=== PATIENT | female | born 1940 | race Caucasian/White ===

== ENCOUNTER 2020-12-25 10:18 | Emergency (ER) | payer MEDICARE, SELFPAY ==
--- NOTE | 2020-12-25 10:00 | RT.EKG_ITS ---
APPROVED REPORT Exam: Resting ECG Patient Location: E HR:66 bpm ECG Measurements Heart Rate 66 AXIS AK 189 P 47 QRSd 84 QRS 12 QT 423 T 31 QTc 443 Conclusion Sinus rhythm...normal P axis, V-rate 60- 99 I have reviewed and interpreted ECG and agree with software generated interpretation.
[2020-12-25 10:23] VITALS: BP 125/59; PULSE 68; RESP 20; TEMP 36.3; O2SAT 99
--- NOTE | 2020-12-25 10:28 | W.ED.GENAD ---
Discharge Plan Disposition Patient Disposition: HOME Condition: Stable Discharge Details Clinical Impression: Hypoglycemic event due to diabetes, Frequent falls Primary Care Provider: Bobby Rivero ED Provider: Christen Gonzalez Home Meds and New Rx's Prescriptions: No Action insulin glargine [Lantus U-100 Insulin] 100 UNITS/ML solution 10 - 45 units SQ DIRECTED RF: 0 aspirin [Aspir-81] 81 MG tablet,delayed release (DR/EC) 1 tab PO DAILY RF: 0 citalopram 20 MG tablet 2 tab PO DAILY RF: 0 pravastatin 20 MG tablet 1 tab PO HS RF: 0 radha ccr-lzi-T0-Nt-lbv-tui-bor [Citracal-D3 Plus Magnesium] 1 EACH tablet 1 tab PO DAILY RF: 0 lisinopril 20 MG tablet 20 mg PO DAILY RF: 0 metoprolol succinate 100 MG tablet extended release 24 hr 200 mg PO DAILY RF: 0 amlodipine 10 MG tablet 10 mg PO DAILY RF: 0 levothyroxine [Levoxyl] 50 MCG tablet 50 mcg PO DAILY RF: 0 hydrochlorothiazide 25 MG tablet 25 mg PO DAILY RF: 0 cholecalciferol (vitamin D3) [Vitamin D3] 2,000 UNIT tablet 2,000 unit PO DAILY RF: 0 Discharge Instructions Instructions: Hypoglycemia in a Person with Diabetes (ED), Fall Prevention for Older Adults (ED) Additional Instructions: Follow up with primary care provider in 2-3 days. Return to ED sooner if any worsening or concerns. Increase oral fluids. Sure to check your sugar at least 3 times a day as needed. Eat 3 meals a day. In the ED today you were given 25 units of Lantus at approximately 11:00 and 10 units regular insulin around 1:30 PM. Return to the ED for any reoccurring falls, worsening headache, worsening weakness, fever, vomiting or any concerns. Care management should be contacting you to help with a making a follow-up appointment with your primary care provider. Referrals: Bobby Rivero [Primary Care Provider] - Discharge Data Discharge Date/Time-TO BE ENTERED AT DEPARTURE: 12/25/20 14:25 Medical Decision Making 80-year-old female presents to the ED via EMS with chief complaint of hypoglycemia. Patient states that she fell out of bed this morning landing on her right hip. Denies any loss of consciousness or hitting her head. She states that her legs gave out she then went downstairs to check her sugar noticed it was 29, had a swig of maple syrup and called the ambulance. When EMS arrived they got a blood sugar of 212, she did want to come in and be checked out. She reports history of leg weakness. She denies any chest pain, shortness of breath no nausea vomiting diarrhea. She does endorse some constipation. She states that she took 35 units of Lantus at noon yesterday and 5 units of Humalog at that time before she ate. She states that her blood sugar at that time was 174. She did eat dinner last night eggs and toast and had to peanut butter cookies approximately 2300 last night. She did not take any insulin this morning. 1041: Initial work-up includes CBC, CMP, EKG, glucose checks every hour. Initial BGL is 257. We will go ahead and feed patient. Call made for food diabetic tray, will give 25 units of Lantus SC now (patient regulary takes 45 units in am). Will recheck BGL in 1 hour. 1155: Spoke with patient's daughter regarding plan of care inpatient status. Patient's daughter verbalized understanding. Will call back approximately an hour and a half. 1245: Repeat BGL is 312, will 10 units subcu regular insulin and 5 mg Tylenol. Discussed doing head CT and or x-rays patient declined at this time. She is neurologically intact, alert and oriented x3. Discussed her management and offered home health and help in the home for frequent falls. Patient states that she does have a walker at home and a cane. 1328: Did speak with patient's daughter Tyra regarding plan for discharge and home care she does verbalize understanding at this time. Patient placed on a care management follow-up list to have a follow-up appointment within 2 to 3 days. Discuss strict return instructions, verbalized understanding. HPI General Mode of arrival: EMS. Date/Time Provider Initiated Documentation: 12/25/20 10:33. Limitations to Documentation: no limitations. Information obtained by: patient and EMS. HPI Narrative: 80-year-old female presents to the ED via EMS with chief complaint of hypoglycemia. Patient states that she fell out of bed this morning landing on her right hip. Denies any loss of consciousness or hitting her head. She states that her legs gave out she then went downstairs to check her sugar noticed it was 29, had a swig of maple syrup and called the ambulance. When EMS arrived they got a blood sugar of 212, she did want to come in and be checked out. She reports history of leg weakness. She denies any chest pain, shortness of breath no nausea vomiting diarrhea. She does endorse some constipation. She states that she took 35 units of Lantus at noon yesterday and 5 units of Humalog at that time before she ate. She states that her blood sugar at that time was 174. She did eat dinner last night eggs and toast and had to peanut butter cookies approximately 2300 last night. She did not take any insulin this morning. Related Data Home Medications Medication Instructions Recorded Confirmed insulin glargine [Lantus Vial] 10 - 45 units SQ DIRECTED 03/31/13 02/08/17 aspirin [Aspir 81] 1 tab PO DAILY 10/30/13 02/08/17 radha fbm-urm-Y2-Jo-rna-ynq-bor 1 tab PO DAILY 10/30/13 02/08/17 [Citracal-Vit D + Magnesium Tab] citalopram 2 tab PO DAILY 10/30/13 02/08/17 pravastatin 1 tab PO HS 10/30/13 02/08/17 amlodipine 10 mg PO DAILY 02/08/17 02/08/17 cholecalciferol (vitamin D3) 2,000 unit PO DAILY 02/08/17 02/08/17 [Vitamin D3] hydrochlorothiazide 25 mg PO DAILY 02/08/17 02/08/17 levothyroxine [Levoxyl] 50 mcg PO DAILY 02/08/17 02/08/17 lisinopril 20 mg PO DAILY 02/08/17 02/08/17 metoprolol succinate 200 mg PO DAILY 02/08/17 02/08/17 Allergies Allergy/AdvReac Type Severity Reaction Status Date / Time No Known Allergies Allergy Unverified 02/08/17 09:29 Review of Systems Narrative: Constitutional: Negative for weight loss, alert and oriented, well groomed, obese body habitus, appears comfortable. HEENT: Denies blurry vision, nasal discharge, sore throat, trouble swallowing. Reports headaches. Chest: Denies chest pain, palpitations, irregular rhythm, hypertension. Respiratory: Denies Shortness of breath, cough, hemoptysis. GI: Denies abdominal pain, nausea, vomiting, diarrhea, positive constipation. : Denies dysuria, hematuria, flank pain, rectal bleeding. Neuro: Denies dizziness, blurry vision, syncope, headache or facial numbness. Reports generalized weakness. Hematologic: Denies easy bruising, intolerance to heat or cold, hair loss. [facility] Social History Smoking/Tobacco Use Status: Never Smoking risk assessment performed?: Yes Alcohol Intake: former Drug use: Never Substance use type: does not use Do you feel safe at home: Yes Do you feel safe in your relationship?: Yes Exam Narrative Exam Narrative: Constitutional: Alert and oriented x3. Appears stated age. Normal body habitus. Head: Normocephalic, no signs of trauma. Eyes: Pupils PERRLA, Red reflex noted, EOM's intact. Eyelids symmetrical without lesions, discharge, or swelling. ENT: Bilateral TM's WNL, External ear normal to inspection, no mastoid TTP, swelling, or erythema, Nasal turbinates WNL, no nasal discharge. Normal dentition, Posterior pharynx WNL, no exudate. Chest: RRR, Normal S1, S2, distal pulses intact. Resp: Lungs clear to auscultation bilaterally, no wheezes, rales, or rhonchi. Abdomen: Soft, nondistended nontender with palpation. Musculoskeletal: Normal gait, 5/5 strength to all four extremities. Skin: No suspicious rashes or lesions. Capillary refill less than 2 sec. Neurologic: Cranial nerves II-XII intact. Alert and oriented x 3. DTR's intact. Hematologic/Lymphatic: No ecchymosis, no lymphadenopathy.
[2020-12-25] MEDS: Normal Saline 1,000 ML 150 ML IV (11:32)
[2020-12-25] MEDS: Insulin Glargine 300 UNITS/3 ML PEN 25 UNITS SC (11:39)
[2020-12-25 11:47] LABS: Abs Immature Grans 0.12 10^3/uL (0.0-0.06); Absolute Eosinophil Count 0.03 10^3/uL (0.0-0.7); Absolute Lymphocyte Count 1.39 10^3/uL (1.2-3.4); Absolute Neutrophil Count 14.24 10^3/uL (1.2-6.7); Basophils % 0.2; Eosinophils % 0.2; HCT 39.9 % (36.0-46.0); Immature Grans % 0.7; MCH 28.3 pg (27.0-33.0); MCHC 32.6 % (32.0-36.0); MCV 86.9 fL (80-95); MPV 11.8 fL (8.0-11.0); Monocytes % 9.2; Neutrophils % 81.7; Nucleated RBC 0 %; RBC 4.59 10^6/uL (3.93-5.22); RDW 12.7 % (11.7-14.6); RDW-SD 40.2 fL; WBC 17.43 10^3/uL (4.4-10.8)
[2020-12-25 11:50] LABS: Absolute Basophil Count 0.03 10^3/uL (0.0-0.2)
[2020-12-25 12:00] LABS: ALT 26 U/L (14-59); AST 20 U/L (15-37); Albumin 3.5 g/dL (3.4-5.0); Alkaline Phosphatase 104 U/L (46-116); Anion Gap 9.4 mmol/L (3-11); BUN 39 mg/dL (7-18); Bilirubin, Total 0.4 mg/dL (0.2-1.0); CO2 24.6 mmol/L (21.0-32.0); CREATININE 2.3 mg/dL (0.55-1.02); Calcium 9.6 mg/dL (8.5-10.1); Chloride 100 mmol/L (98-107); Glucose 304 mg/dL (74-106); Magnesium 1.7 mg/dL (1.8-2.4); Platelet Count 213 10^3/uL (130-400); Sodium 134 mmol/L (136-145); Total Protein 7.4 g/dL (6.4-8.2)
[2020-12-25 12:01] LABS: Diff Comment Diff Reviewed; RBC Morphology Normal
[2020-12-25 12:15] LABS: Bilirubin Negative (Negative); Blood Negative (Negative); Clarity Sl Cloudy (Clear); Glucose 100 mg/dL (Negative); Ketones Negative (Negative); Leukocyte Esterase Negative (Negative); Nitrite Negative (Negative); Specific Gravity 1.025 (1.005-1.025); Urobilinogen 0.2 EU/dL (Up TO 0.2); pH 5.5 (5-8)
[2020-12-25 12:22] LABS: Bacteria Few HPF (Negative); C & S Indicated? Yes; Casts Negative LPF (Negative); Crystals Negative HPF (Negative); Epithelial Cells Few HPF (Negative); Mucus Moderate (Negative); RBC 0-2 HPF (0-2); WBC 0-2 HPF (0-5)
[2020-12-25 12:34] VITALS: RESP 19
[2020-12-25] MEDS: Insulin REGULAR-Human 100 UNITS/ML UNIT 10 UNITS SC (13:25)
[2020-12-25] MEDS: Acetaminophen 500 MG TAB PO (13:28)
[2020-12-25 13:43] VITALS: RESP 21; TEMP 36.3
[2020-12-25 14:06] VITALS: BP 161/79; PULSE 88
== END 2020-12-25 14:25 | disposition home or self-care (01) ==
PROVIDERS: Emergency Provider Registered Nurse Emergency; PCP Internal Medicine Sleep Medicine
DX: E11.649 Type 2 diabetes mellitus with hypoglycemia without coma (principal); Z79.4 Long term (current) use of insulin; R53.1 Weakness; W06.XXXA Fall from bed, initial encounter; R29.6 Repeated falls
CPT/HCPCS: 36415; 36416; 80053; 82962; 93005; 96360; 96361; 96372; 99284; 81003; 81015; 83735; 85025; 87086; 93010

== ENCOUNTER 2024-08-12 12:51 | Emergency (ER) | payer MEDICARE, SELFPAY ==
[2024-08-12] VITALS (8 sets, daily range): BP systolic 145–158; BP diastolic 61–66; PULSE 66–74; RESP 11–42; O2SAT 95–100
--- NOTE | 2024-08-12 12:45 | RT.EKG_ITS ---
APPROVED REPORT Exam: Resting ECG Reason for Exam: altered mental status Patient Location: E HR:69 bpm ECG Measurements Heart Rate 69 AXIS IA 183 P 65 QRSd 82 QRS 25 QT 391 T 29 QTc 418 Conclusion Sinus rhythm...normal P axis, V-rate 60- 99
--- NOTE | 2024-08-12 12:45 | DI.CT_ITS ---
Exam(s) CT HEAD - STROKE PROTOCOL EXAM: CT HEAD - STROKE PROTOCOL CLINICAL HISTORY: AMS. TECHNIQUE: Imaging Protocol: Axial computed tomography images with coronal and sagittal reformatted images were created and reviewed COMPARISON: CT HEAD WITHOUT STROKE PROTOCOL from 02/08/2017 FINDINGS: There are no skull fractures. There is no fluid in the visualized paranasal sinuses. There is larger of abnormal hypodensity in the right occipital lobe which was not evident in 2017 and consistent with nonhemorrhagic infarct. May not be acute given the significant part of this exhibit s normal CSF density. No other areas of infarct evident although there is a small 5 millimeter lacun ar infarct noted in the right cerebellar hemisphere which was not present in 2017 IMPRESSION: Nonhemorrhagic right occipital lobe infarct. Possibly not acute but not previously present in 2017. No intracranial hemorrhage. Small nonhemorrhagic lacunar infarct in the right cerebellar hemisphere, also not previously present in 2017. Called by myself to ER 08/12/2024 at 1:13 p.m. Report given to ER physician. RADIATION DOSE DELIVERED: 891.73mGy.cm Total DLP DATA REPOSITORY: All CT scans at this facility are submitted to the National Radiology Data Registry (NRDR) Dose Index Registry (DIR) with the [employer] (A[employer]). RADIATION OPTIMIZATION: All CT scans at this facility use at least one of these dose optimization te chniques: automated exposure control; mA and/or kV adjustment per patient size (includes targeted exa ms where dose is matched to clinical indication); or iterative reconstruction.
--- NOTE | 2024-08-12 13:03 | W.ED.GENAD ---
Discharge Plan Disposition Condition: Stable Discharge Details Chief Complaint: AMS/LOC Clinical Impression: Altered mental status Primary Care Provider: Lyla Segundo ED Provider: Fili Christie Home Meds and New Rx's Prescriptions: No Action insulin glargine [Lantus U-100 Insulin] 100 UNITS/ML solution 10 - 45 units SQ DIRECTED Patient Comments: 45 units QAM / 10 units QHS aspirin [Aspir-81] 81 MG tablet,delayed release (DR/EC) 1 tab PO DAILY citalopram 20 MG tablet 2 tab PO DAILY pravastatin 20 MG tablet 1 tab PO HS Citracal-D3 Plus Magnesium 1 EACH tablet 1 tab PO DAILY lisinopril 20 MG tablet 20 mg PO DAILY metoprolol succinate 100 MG tablet extended release 24 hr 200 mg PO DAILY amlodipine 10 MG tablet 10 mg PO DAILY levothyroxine [Levoxyl] 50 MCG tablet 50 mcg PO DAILY hydrochlorothiazide 25 MG tablet 25 mg PO DAILY cholecalciferol (vitamin D3) [Vitamin D3] 2,000 UNIT tablet 2,000 unit PO DAILY HPI General Mode of arrival: EMS. Date/Time Provider Initiated Documentation: 08/12/24 12:52. Limitations to Documentation: no limitations. Information obtained by: patient. History of Present Illness 83 year old F presents to the emergency department with the chief complaint of altered mental status, described as moderate, Patient started experiencing this hour(s) (1.5) and it has been constant. No relieving factors improve symptom(s), No exacerbating factors reported . Patient did receive the following treatments prior to arrival, none Related Data Home Medications ?Medication ?Instructions ?Recorded ?Confirmed insulin glargine 100 unit/mL 10 - 45 units SQ DIRECTED 03/31/13 08/12/24 subcutaneous solution (Lantus U-100 Insulin) aspirin 81 mg tablet,delayed 1 tab PO DAILY 10/30/13 08/12/24 release (Aspir-) calcium 1 tab PO DAILY 10/30/13 08/12/24 jiu-cyv-F9-Lj-jmoslh-Qo-boron 250 mg-40 mg-125 unit tablet (Citracal-D3 Plus Magnesium) citalopram 20 mg tablet 2 tab PO DAILY 10/30/13 08/12/24 pravastatin 20 mg tablet 1 tab PO HS 10/30/13 08/12/24 amlodipine 10 mg tablet 10 mg PO DAILY 02/08/17 08/12/24 cholecalciferol (vitamin D3) 50 2,000 unit PO DAILY 02/08/17 08/12/24 mcg (2,000 unit) tablet (Vitamin D3) hydrochlorothiazide 25 mg tablet 25 mg PO DAILY 02/08/17 08/12/24 levothyroxine 50 mcg tablet 50 mcg PO DAILY 02/08/17 08/12/24 (Levoxyl) lisinopril 20 mg tablet 20 mg PO DAILY 02/08/17 08/12/24 metoprolol succinate 100 mg 200 mg PO DAILY 02/08/17 08/12/24 tablet,extended release 24 hr Allergies Allergy/AdvReac Type Severity Reaction Status Date / Time No Known Allergies Allergy Unverified 02/08/17 09:29 General Stated Complaint: AMS/LOC RUBIN: 2 Review of Systems Unobtainable due to mental status Exam [facility] Head: normal to inspection Ears: external ears normal General nose exam: external nose normal Mouth: moist mucous membranes Eyes General: appearance normal, both eyes and all related structures Neck Neck: normal visual inspection Resp Effort & Inspection: normal respiratory effort Cardio Rate: regular rate Skin General skin exam: no rashes or lesions noted Extrem General: normal to inspection Medical Decision Making 83-year-old female with a reported history of dementia but normally is oriented per EMS report from EMS comes in after she slid out of her recliner per family around 1130 and started moaning and not responding. With EMS she was not answering questions, she would moan to painful stimuli. On arrival she is doing more of the same, she has no signs of trauma to the head, she does moan and pulls away her lower extremities with painful stimuli.She is crying persistently during the exam. Her pupils are equal and reactive to light. She has a soft nontender abdomen. Unclear if this is an acute neurological issue or behavioral issue, it does not seem like she has unilateral deficits to suggest a CVA but will proceed with CTA and CT, and also check CBC, CMP and give 0.5 mg of Ativan and reassess. Patient daughters are at bedside to see her almost daily, they said that she started treatment for an UTI at [facility] a week ago which she still taking. He states he normally is talkative but nobody has talked to her since last night. They state that this morning she walked into her recliner and when her went to talk to her she was nonverbal so it seems like her last known well was last night and not 2 hours ago so she is not a tPA candidate. Labs are still pending, we will see if we have ability to get an MRI. Patient shortly after having Ativan unremarkable improvement in her mental status and is awake and talking, she is alert to her name but does not know where she is at the time. Apparently per the daughters last few weeks she is definitely any deterioration in terms of her mental state. Labs unremarkable, pending MRI. MRI read as no acute findings. Has evidence of old infarcts strokes. Patient still alert, I suspect this was related to dementia and possibly behavioral factor given her rapid improvement with Ativan. Will have physical therapy and care management eval. Patient's UA does show signs of a continued UTI, they were not able to culture it so nursing will collect and will sample to send for culture. Patient be signed out to [facility] pending PT evaluation. If she is not able to go home we will consider IV antibiotics, if able to go home will consider oral antibiotics. Differential Diagnosis Differential Diagnosis: Dementia, behavioral issue, CVA, electrolyte abnormality Medical Records Medical records reviewed: Yes I reviewed the patient's medical records. Imaging Data Radiologic Study: Attestation: I personally reviewed and interpreted this imaging study as follows: Imaging: MRI Radiologist's impression: CEREBRAL PARENCHYMA: There is no evidence of acute intracranial hemorrhage, mass effect, or shift of midline structures. There are no extra-axial fluid collections. Ventricles are not enlarged or shifted. Small nonhemorrhagic nonacute lacunar infarct noted in the right cerebellar hemisphere. There is moderate amount of bilateral periventricular signal abnormality consistent with chronic small vessel disease. Also evidence of prior nonacute infarct in the right occipital lobe without evidence of restricted diffusion at this level nor elsewhere in the brain. SWI: There are 2 adjacent small foci of signal abnormality in the right occipital lobe consistent with microhemorrhages in the region of the nonacute right occipital infarct. PITUITARY GLAND: No mass nor parasellar abnormality. No obvious abnormality in the cavernous sinuses. FLOW VOIDS: The expected flow void are noted. No evidence of obvious aneurysm nor obvious vascular malformation. PARANASAL SINUSES: The visualized paranasal sinuses appear unremarkable. There is effusion in the mastoid air cells, more so on the right side. ORBITS: No obvious findings. IMPRESSION: The right occipital infarct evident on the CT scan of earlier today has appearance of not being acute (no restricted diffusion) on today's MRI scan. However, there 2 small adjacent foci of signal abnormality on susceptibility weighted imaging in this region consistent with 2 adjacent microhemorrhages in the area of the right occipital lobe infarct. Nonacute nonhemorrhagic small 4 millimeter lacunar infarct noted in the right cerebellar hemisphere. Bilateral periventricular signal abnormality consistent with chronic small vessel disease. Mastoid air cell effusions, right more than left. The paranasal sinuses are clear ECG Data Attestation: I personally reviewed and interpreted this ECG (s) as follows: Prior ECG tracings: not available for review Interpretation: sinus rate of 69, pr 183, no stemi Quality:SDOH Health Related Social Needs: No Data to Display PFSH All Active Problems (Updated 08/12/24 @ 16:12 by Fili Christie MD) Altered mental status (Acute) Sensorineural hearing loss (SNHL) of both ears (Acute) Social History Smoking/Tobacco Use Status: Never Smoking risk assessment performed?: Yes Alcohol Intake: former Drug use: Never Substance use type: does not use Do you feel safe at home: Yes Do you feel safe in your relationship?: Yes
[2024-08-12 13:21] LABS: Abs Immature Grans 0.03 10^3/uL (0.0-0.06); Absolute Basophil Count 0.06 10^3/uL (0.0-0.2); Absolute Eosinophil Count 0.06 10^3/uL (0.0-0.7); Absolute Lymphocyte Count 2.14 10^3/uL (1.2-3.4); Absolute Monocyte Count 1.17 10^3/uL (0.1-0.8); Absolute Neutrophil Count 6.08 10^3/uL (1.2-6.7); Basophils % 0.6 %; Eosinophils % 0.6 %; HCT 38.4 % (36.0-46.0); HGB 12.7 g/dL (11.2-15.7); Immature Grans % 0.3 %; Lymphocytes % 22.4 %; MCH 29.8 pg (27.0-33.0); MCHC 33.1 % (32.0-36.0); MCV 90 fL (80-95); MPV 10.9 fL (8.0-11.0); Monocytes % 12.3 %; Neutrophils % 63.8 %; Platelet Count 179 10^3/uL (130-400); RBC 4.26 10^6/uL (3.93-5.22); RDW 12.6 % (11.7-14.6); RDW-SD 41.5 fL; WBC 9.54 10^3/uL (4.4-10.8)
[2024-08-12] MEDS: LORazepam 2 MG/ML VIAL 0.5 MG IVP (13:28)
[2024-08-12 13:36] LABS: INR 1.1 (0.9-1.1); PTT Activated 24.6 sec (23.6-32.8); Prothrombin Time 10.6 sec (9.1-11.1)
[2024-08-12 14:02] LABS: ALT 30 U/L (14-59); AST 28 U/L (15-37); Albumin 3.9 g/dL (3.4-5.0); Alkaline Phosphatase 91 U/L (46-116); Anion Gap 9.4 mmol/L (3-11); BUN 39 mg/dL (7-18); Bilirubin, Direct 0.2 mg/dL (0.0-0.2); CO2 25.6 mmol/L (21.0-32.0); CREATININE 2.4 mg/dL (0.55-1.02); Chloride 104 mmol/L (98-107); Estimated GFR 19.31 (mL/min/1.73m2); Glucose 159 mg/dL (74-106); Magnesium 2.2 mg/dL (1.8-2.4); Potassium 4.5 mmol/L (3.5-5.1); Sodium 139 mmol/L (136-145); TSH (W/Ref FT4) 2.27 uIU/mL (0.36-3.74); Total Protein 7.1 g/dL (6.4-8.2); Troponin I 13 ng/L (<or=51)
--- NOTE | 2024-08-12 14:25 | DI.MRI_ITS ---
Exam(s) MR BRAIN WO EXAM: MR BRAIN WO CLINICAL HISTORY: ?cva TECHNIQUE: Multiplanar multisequence MRI of the brain was performed. COMPARISON: CT CT HEAD - STROKE PROTOCOL from 08/12/2024 FINDINGS: CEREBRAL PARENCHYMA: There is no evidence of acute intracranial hemorrhage, mass effect, or shift of midline structures. There are no extra-axial fluid collections. Ventricles are not enlarged or shifted. Small nonhemorrhagic nonacute lacunar infarct noted in the right cerebellar hemisphere. There is moderate amount of bilateral periventricular signal abnormality consistent with chronic smal l vessel disease. Also evidence of prior nonacute infarct in the right occipital lobe without eviden ce of restricted diffusion at this level nor elsewhere in the brain. SWI: There are 2 adjacent small foci of signal abnormality in the right occipital lobe consistent wit h microhemorrhages in the region of the nonacute right occipital infarct. PITUITARY GLAND: No mass nor parasellar abnormality. No obvious abnormality in the cavernous sinuses. FLOW VOIDS: The expected flow void are noted. No evidence of obvious aneurysm nor obvious vascular ma lformation. PARANASAL SINUSES: The visualized paranasal sinuses appear unremarkable. There is effusion in the ma stoid air cells, more so on the right side. ORBITS: No obvious findings. IMPRESSION: The right occipital infarct evident on the CT scan of earlier today has appearance of not being acute (no restricted diffusion) on today's MRI scan. However, there 2 small adjacent foci of signal abnor mality on susceptibility weighted imaging in this region consistent with 2 adjacent microhemorrhages in the area of the right occipital lobe infarct. Nonacute nonhemorrhagic small 4 millimeter lacunar infarct noted in the right cerebellar hemisphere. Bilateral periventricular signal abnormality consistent with chronic small vessel disease. Mastoid air cell effusions, right more than left. The paranasal sinuses are clear Called to ER physician 08/12/2024 at 3 10 p.m. DATA REPOSITORY:
--- NOTE | 2024-08-12 15:15 | DI.MRI_ITS ---
Exam(s) MR ANGIO NECK WO EXAM: MR ANGIO NECK WO CLINICAL HISTORY: ?cva, ams. TECHNIQUE: 2D and 3D [id number] MRA of the Neck was performed. COMPARISON: No exams were available for comparison FINDINGS: Exam is limited by motion however projected on the 3D [id number] sequence.. Common Carotid: Right: No dissection, occlusion or significant stenosis. Left: No dissection, occlusion or significant stenosis. External Carotid: Right: No evidence of occlusion or significant stenosis. Left: No evidence of occlusion or significant stenosis. Internal Carotid: Right: No dissection, occlusion or significant stenosis. Left: No dissection, occlusion or significant stenosis. Vertebral Artery: Right: No dissection, occlusion or significant stenosis. Left: No dissection, occlusion or significant stenosis. The visualized paraspinal soft tissues are unremarkable. IMPRESSION: No evidence of dissection, occlusion or significant stenosis. DATA REPOSITORY:
--- NOTE | 2024-08-12 15:15 | DI.MRI_ITS ---
Exam(s) MR ANGIO BRAIN WO CLINICAL HISTORY: ?cva, ams. TECHNIQUE: 3D [id number] study was performed without contrast. COMPARISON: Brain MRI the same day. FINDINGS: Exam is limited by motion. Carotid Arteries: Petrous: Normal. Cavernous: Normal. Cerebral: Normal. Middle Cerebral Arteries: Right: No aneurysm or significant stenosis. Left: No aneurysm or significant stenosis. Anterior Cerebral Arteries: Right: Dominant. No aneurysm or significant stenosis. Left: No aneurysm or significant stenosis. Posterior cerebral arteries: Diminutive bilaterally Vertebral Arteries: Right: No aneurysm or significant stenosis. No dissection. Left: No aneurysm or significant stenosis. No dissection.. Basilar Artery: No aneurysm or significant stenosis. Small Vessels: No evidence of beading. IMPRESSION: Diminutive bilateral posterior cerebral arteries. Exam is otherwise unremarkable. DATA REPOSITORY:
[2024-08-12] MEDS: LORazepam 2 MG/ML VIAL (15:30)
[2024-08-12 16:02] LABS: Bilirubin Negative (Negative); Blood Trace-intact (Negative); Clarity Sl Cloudy (Clear); Glucose Negative (Negative); Ketones Negative (Negative); Leukocyte Esterase Large (Negative); Nitrite Negative (Negative); Specific Gravity 1.015 (1.005-1.025); Urobilinogen 0.2 mg/dL (Up to 0.2); pH 6.5 (5-8)
[2024-08-12 16:03] LABS: Troponin I 11 ng/L (<or=51)
[2024-08-12 16:09] LABS: Bacteria Few HPF (Negative); C & S Indicated? No/Sq. Contamination; Crystals Negative HPF (Negative); Epithelial Cells Many HPF (Negative); Mucus Trace (Negative); Other Cells Few Transitional (Negative); WBC >50 HPF (0-5)
--- NOTE | 2024-08-12 16:25 | IN_ITS ---
PT Notes Visit Reasons: [facility] Emergency Department Initial Evaluation Date: 08/12/2024 Referring Doctor: Fili Christie MD PT Orders: PT CONSULT: Fall Safety Assessment Precautions: Fall. Standard. Activity as tolerated. Patient Profile/Admitting Diagnosis: Patient is an 83-year-old lady who presented to the ED today via EMS due to altered mental status. She reportedly slid out of her recliner and has had decreased responsiveness. MRI today showed no acute abnormality. 08/12/2024 MRI IMPRESSION: The right occipital infarct evident on the CT scan of earlier today has appearance of not being acute (no restricted diffusion) on today's MRI scan. However, there 2 small adjacent foci of signal abnormality on susceptibility weighted imaging in this region consistent with 2 adjacent microhemorrhages in the area of the right occipital lobe infarct. Nonacute nonhemorrhagic small 4 millimeter lacunar infarct noted in the right cerebellar hemisphere. Bilateral periventricular signal abnormality consistent with chronic small vessel disease. Mastoid air cell effusions, right more than left. The paranasal sinuses are clear PMHX: All Active Problems (Updated 08/12/24 @ 16:12 by Fili Christie MD) Altered mental status (Acute) Sensorineural hearing loss (SNHL) of both ears (Acute) Social History/Home Situation: Lives with who himself has a balance and visual issues and therefore is unable to safely provide physical assistance to . Bree and Lilli are family memebers who are in and out of their house and may be able to provided assistnce as needed. Equipment Owned/DME: [facility], [facility] Subjective: This place is so cold. I can move, let me show you Objective: General Observation: Lying on stretcher. Son's girlfriend and granddaughter present in room throughout evaluation. Mental Status: Alert and oriented as to person. Knows where she lives. Able to pay attention, focus, and respond appropriately. Pain: Tenderness to bilateral hamstrings when muscle testing was done. Vital Signs: Closely monitored by nursing staff ROM: Right Upper Extremity: Shoulder Flexion WFL. Shoulder abduction WFL. Elbow flexion WFL. Wrist flexion WFL. Functional opening and closing of hand WFL. Left Upper Extremity: Shoulder Flexion WFL. Shoulder abduction WFL. Elbow flexion WFL. Wrist flexion WFL. Functional opening and closing of hand WFL. Right Lower Extremity: Hip flexion WFL. Hip abduction WFL. Knee flexion WFL. Ankle dorsiflexion to neutral only. Ankle plantarflexion WFL. Left Lower Extremity: Hip flexion WFL. Hip abduction WFL. Knee flexion WFL. Ankle dorsiflexion WFL. Ankle plantarflexion WFL. Strength: Right Upper Extremity: Shoulder flexors 4-/5. Shoulder abductors 4-/5. Elbow flexors 4-/5. Elbow extensors 4-/5. Independent Living Specialist strong. Left Upper Extremity: Shoulder flexors 4-/5. Shoulder abductors 4-/5. Elbow flexors 4-/5. Elbow extensors 4-/5. Independent Living Specialist strong. Right Lower Extremity: Hip flexors 3+/5. Hip abductors 3+/5. Knee flexors 4-/5. Knee extensors 4-/5. Ankle dorsiflexors 3-/5. Ankle plantarflexors 4-/5. Left Lower Extremity: Hip flexors 3+/5. Hip abductors 3+/5. Knee flexors 4-/5. Knee extensors 4-/5. Ankle dorsiflexors 3-/5. Ankle plantarflexors 4-/5. Bed Mobility/Transfers: Minimal cueing provided for use of B hands as needed for support, movement sequence, AD management, and posture to reduce fall risk and minimize pain report Supine to sit contact guard assist Sit to supine stand by assist Sit to stand contact guard assist Stand to sit standby assist with [] with [] cues for safe/correct technique Gait: Facilitated safe and correct performance of level surface ambulation covering a distance of about 80 feet using front-wheeled walker requiring standby assist contact-guard assist during directional changes as patient tends lose awareness of posterior balance. No LOB. No SOB. neeed cueing to slw down and keep both hands onto walker. Balance: Static Sitting: Normal Dynamic Sitting: Normal Static Standing: Fair Dynamic Standing: Fair Special Tests: Mobility Limitations Standardized Measure [facility] AM-PAC 6 clicks Basic Mobility Inpatient Short Form: Raw Score: 22 CMS Score: 21% deficit Informed Consent/Education: Patient was instructed in purpose of PT consult. Assessment: Patient presents with clinical signs and symptoms consistent with current/admitting diagnoses that have resulted to mobility limitations, gait instability, generalized weakness, and overall ADL decline as demonstrated by the following impairment level findings: 1. Decreased strength to B UE/LE major muscle groups 2. Impaired sitting/standing balance 3. Impaired activity tolerance Impairments are contributing to the following functional limitations: 1. Difficulty with ambulation without assistive device and physical assistance 2. Increased completion time for mobility ADL performance 3. Increased risk for falls 4. Difficulty with managing steps alone safely Patient is assessed as a [id number] moderate complexity based on the following: History: 83-year-old female with past medical history as indicated above Examination: Demonstrable impairment in strength, balance, and mobility level with underlying impairments and functional limitations as exhibited above as well as deficit score of 21% utilizing the [facility] Mobility Inpatient Short Form Presentation: Evolving Decision Makin moderate complexity Goals: N/A. PT evaluation only. Plan of Care/Treatment Plan: N/A. PT evaluation only. DISCHARGE RECOMMENDATIONS: [] Home with no services [] [X] Home with services. Patient will benefit from home health PT services in order to progress mobility level using least restrictive assistive ambulatory device, assess home safety, identify additional equipment needs, and establish a functional maintenance program that will increase ability of patient to remain at home. [] Home with outpatient PT [] [] SNF for continued rehabilitation [] [] Assisted Care [] [] SNF versus LTC based on ability to participate and progress [] TREATMENT CODE/TIME: 63299 x 27 minutes for 1 unit (16: 25?16: 52). Thank you for the opportunity to participate in the care of this patient. Yuni Jaquez PT, DPT, CLT [facility] [place], [place]
--- NOTE | 2024-08-12 16:31 | W.EDPROG ---
Date of service: 08/12/24 Time of Service: 16:31 Medical Decision Making Care assumed from provider (Fili MENDOZA) Please see their initial HPI, PE, and documentation. Discussed patient details and case and pending workup and disposition. Patient is hemodynamically stable, and at baseline. Care management at bedside for evaluation. Patient does have leukocytes with squamous contamination, instructed nurses to attempt an In-N-Out catheter urine specimen. Awaiting PT eval for ambulatory trial and assessment of safety for discharge. Spoke with physical therapist who reports that patient is able to walk with a walker and with assistance at this time. She does have a walker at home and she is not independent by any means at this time, will order home health and care management will follow up with them tomorrow. Spoke with family she does a self administer her medications, she does have help with her family 3 times a day. She does have a walker at home. I will order home health for physical therapy and occupational therapist to evaluate for performing self-care and ADLs and upper extremity strength range of motion and speech therapy. Will also order medical authorization specialist to assist with community resources and long care planning. Patient does have a history of dementia and is required care throughout the day at home by her family members. They do express desire for additional help at home. Patient remained hemodynamically stable throughout the remainder of her stay. She was at baseline mentation. Will give cephalexin for urinary tract infection and discussed strict return instructions. This text was generated using [employer] dictation system, please disregard any oddities of phrase or misspellings. Lab Data Lab results reviewed: Yes I reviewed the patient's lab results. Labs: 08/12/24 16:55 Urine - Cath Straight Urine Culture - Pending Laboratory Tests Range/Units 08/12/24 08/12/24 08/12/24 13:15 15:25 15:55 WBC (4.4-10.8) 10^3/uL 9.54 RBC (3.93-5.22) 10^6/uL 4.26 Hgb (11.2-15.7) g/dL 12.7 Hct (36.0-46.0) % 38.4 MCV (80-95) fL 90 MCH (27.0-33.0) pg 29.8 MCHC (32.0-36.0) % 33.1 RDW (11.7-14.6) % 12.6 Plt Count (130-400) 10^3/uL 179 MPV (8.0-11.0) fL 10.9 Immature Gran % % 0.3 Neutrophils % % 63.8 Lymphocytes % % 22.4 Monocytes % % 12.3 Eosinophils % % 0.6 Basophils % % 0.6 Nucleated RBC % (0.0-0.3) % 0.0 Absolute Neutrophils (1.2-6.7) 10^3/uL 6.08 Absolute Lymphocytes (1.2-3.4) 10^3/uL 2.14 Absolute Monocytes (0.1-0.8) 10^3/uL 1.17 H Absolute Eosinophils (0.0-0.7) 10^3/uL 0.06 Absolute Basophils (0.0-0.2) 10^3/uL 0.06 PT (9.1-11.1) sec 10.6 INR (0.9-1.1) 1.1 APTT (23.6-32.8) sec 24.6 Sodium (136-145) mmol/L 139 Potassium (3.5-5.1) mmol/L 4.5 Chloride (98-107) mmol/L 104 Carbon Dioxide (21.0-32.0) mmol/L 25.6 Anion Gap (3-11) mmol/L 9.4 BUN (7-18) mg/dL 39 H Creatinine (0.55-1.02) mg/dL 2.4 H Est GFR (CKD-EPI 2020) (mL/min/1.73m2) 19.31 Glucose (74-106) mg/dL 159 H Calcium (8.5-10.1) mg/dL 11.0 H Magnesium (1.8-2.4) mg/dL 2.2 Total Bilirubin (0.2-1.0) mg/dL 0.90 Conjugated Bilirubin (0.0-0.2) mg/dL 0.2 AST (15-37) U/L 28 ALT (14-59) U/L 30 Alkaline Phosphatase (46-116) U/L 91 Troponin I (<or=51) ng/L 13 11 Total Protein (6.4-8.2) g/dL 7.1 Albumin (3.4-5.0) g/dL 3.9 TSH (0.36-3.74) uIU/mL 2.27 Urine Color (Yellow) Yellow Urine Clarity (Clear) Sl Cloudy Urine pH (5-8) 6.5 Ur Specific [place] (1.005-1.025) 1.015 Urine Protein (Neg-Trace) mg/dL Trace Urine Ketones (Negative) mg/dL Negative Urine Blood (Negative) Trace-intact H Urine Nitrite (Negative) Negative Urine Bilirubin (Negative) Negative Urine Urobilinogen (Up to 0.2) mg/dL 0.2 Ur Leukocyte Esterase (Negative) Large H Urine RBC (0-2) HPF 5-10 H Urine WBC (0-5) HPF >50 H Ur Epithelial Cells (Negative) HPF Many Urine Crystals (Negative) HPF Negative Urine Bacteria (Negative) HPF Few Urine Mucus (Negative) Trace Urine Other (Negative) Few Transitional Ur Culture Indicated? No/Sq. Contamination Urine Glucose (Negative) mg/dL Negative Range/Units 08/12/24 16:55 WBC (4.4-10.8) 10^3/uL RBC (3.93-5.22) 10^6/uL Hgb (11.2-15.7) g/dL Hct (36.0-46.0) % MCV (80-95) fL MCH (27.0-33.0) pg MCHC (32.0-36.0) % RDW (11.7-14.6) % Plt Count (130-400) 10^3/uL MPV (8.0-11.0) fL Immature Gran % % Neutrophils % % Lymphocytes % % Monocytes % % Eosinophils % % Basophils % % Nucleated RBC % (0.0-0.3) % Absolute Neutrophils (1.2-6.7) 10^3/uL Absolute Lymphocytes (1.2-3.4) 10^3/uL Absolute Monocytes (0.1-0.8) 10^3/uL Absolute Eosinophils (0.0-0.7) 10^3/uL Absolute Basophils (0.0-0.2) 10^3/uL PT (9.1-11.1) sec INR (0.9-1.1) APTT (23.6-32.8) sec Sodium (136-145) mmol/L Potassium (3.5-5.1) mmol/L Chloride (98-107) mmol/L Carbon Dioxide (21.0-32.0) mmol/L Anion Gap (3-11) mmol/L BUN (7-18) mg/dL Creatinine (0.55-1.02) mg/dL Est GFR (CKD-EPI 2020) (mL/min/1.73m2) Glucose (74-106) mg/dL Calcium (8.5-10.1) mg/dL Magnesium (1.8-2.4) mg/dL Total Bilirubin (0.2-1.0) mg/dL Conjugated Bilirubin (0.0-0.2) mg/dL AST (15-37) U/L ALT (14-59) U/L Alkaline Phosphatase (46-116) U/L Troponin I (<or=51) ng/L Total Protein (6.4-8.2) g/dL Albumin (3.4-5.0) g/dL TSH (0.36-3.74) uIU/mL Urine Color (Yellow) Yellow Urine Clarity (Clear) Sl Cloudy Urine pH (5-8) 6.0 Ur Specific [place] (1.005-1.025) 1.015 Urine Protein (Neg-Trace) mg/dL Trace Urine Ketones (Negative) mg/dL Negative Urine Blood (Negative) Trace-intact H Urine Nitrite (Negative) Negative Urine Bilirubin (Negative) Negative Urine Urobilinogen (Up to 0.2) mg/dL 0.2 Ur Leukocyte Esterase (Negative) Small H Urine RBC (0-2) HPF 10-20 H Urine WBC (0-5) HPF >50 H Ur Epithelial Cells (Negative) HPF Rare Urine Crystals (Negative) HPF Negative Urine Bacteria (Negative) HPF Rare Urine Mucus (Negative) Trace Urine Other (Negative) Rare Transitional Ur Culture Indicated? C&S Done As Ordered Urine Glucose (Negative) mg/dL Negative Quality:SDOH Health Related Social Needs: No Data to Display Sign Out Sign Out Data: Sign Out Comment: patient with episode of ams that seemed behavioral/psych, was tearful during it and responded well to iv ativan. Reassuring workup other then likely uti. Pending PT eval Last updated by Fili Christie MD at 08/12/24 16:29 Discharge Plan Disposition Patient Disposition: Home Condition: Stable Discharge Details Clinical Impression: Altered mental status, UTI (urinary tract infection) Primary Care Provider: Lyla Segundo ED Provider: Christen Gonzalez Home Meds and New Rx's Prescriptions: New cephalexin 500 mg capsule 500 mg PO BID 10 Days Qty: 20 0RF Rx Instructions: Take one capsule by mouth twice daily x 10 days Continued insulin glargine [Lantus U-100 Insulin] 100 UNITS/ML solution 10 - 45 units SQ DIRECTED Patient Comments: 45 units QAM / 10 units QHS aspirin [Aspir-81] 81 MG tablet,delayed release (DR/EC) 1 tab PO DAILY citalopram 20 MG tablet 2 tab PO DAILY pravastatin 20 MG tablet 1 tab PO HS Citracal-D3 Plus Magnesium 1 EACH tablet 1 tab PO DAILY lisinopril 20 MG tablet 20 mg PO DAILY metoprolol succinate 100 MG tablet extended release 24 hr 200 mg PO DAILY amlodipine 10 MG tablet 10 mg PO DAILY levothyroxine [Levoxyl] 50 MCG tablet 50 mcg PO DAILY hydrochlorothiazide 25 MG tablet 25 mg PO DAILY cholecalciferol (vitamin D3) [Vitamin D3] 2,000 UNIT tablet 2,000 unit PO DAILY Discharge Instructions Instructions: Delirium (confusion), Urinary Tract Infection, Adult ED Additional Instructions: It appears that she still has an ongoing urinary tract infection at this time. We will give her an additional 10 days of cephalexin. Please take this with yogurt or a probiotic. Care management will follow up with you tomorrow. Thank you for allowing us to care for you today. Home health was ordered for physical therapy and Occupational Therapy to assist with activities of daily living and strength training. Follow up with primary care provider in 3-5 days. Return to ED sooner if any worsening or concerns. Referrals: Lyla Segundo [Primary Care Provider] - 5 days Kimmy Atwood [CELL STRIPPER] - 2 days
--- NOTE | 2024-08-12 16:37 | PDOC.CMPRO ---
Date of service: 08/12/24 Time of Service: 16:37 Care Management Progress Note Progress Note Text Progress Note Text: ED Consult-dementia, home resources, unsteady gait. Awaiting PT consult, PT was present and starting evaluation when CM responded to ED. reports Shandra's presentation has declined in the last 24 hours; may require further observation. Awaiting PT consult to inform level of service need; will provide family education re: community service support and LTC insurance. SDOH(Care Management) Screening Will the Patient Participate in the Screening?: Unable to obtain
[2024-08-12 17:01] LABS: Bilirubin Negative (Negative); Blood Trace-intact (Negative); Clarity Sl Cloudy (Clear); Glucose Negative (Negative); Ketones Negative (Negative); Leukocyte Esterase Small (Negative); Nitrite Negative (Negative); Specific Gravity 1.015 (1.005-1.025); Urobilinogen 0.2 mg/dL (Up to 0.2)
[2024-08-12 17:14] LABS: Bacteria Rare HPF (Negative); Crystals Negative HPF (Negative); Epithelial Cells Rare HPF (Negative); Mucus Trace (Negative); Other Cells Rare Transitional (Negative); WBC >50 HPF (0-5)
[2024-08-12 17:15] LABS: C & S Indicated? C&S Done As Ordered
[2024-08-12] MEDS: Cephalexin 500 MG CAP PO (17:25)
== END 2024-08-12 17:32 | disposition home or self-care (01) ==
PROVIDERS: Emergency Medicine; Emergency Provider Registered Nurse Emergency; PCP Registered Nurse Infection Control
DX: R41.82 Altered mental status, unspecified (principal); N39.0 Urinary tract infection, site not specified; F03.90 Unspecified dementia, unspecified severity, without behavioral disturbance, psychotic disturbance, mood disturbance, and anxiety; Z79.4 Long term (current) use of insulin; Z79.82 Long term (current) use of aspirin
CPT/HCPCS: 00123; 70544; 70547; 80053; 80076; 93005; 97162; 70450; 70551; 81003; 81015; 83735; 84443; 84484; 85025; 85610; 85730; 87086; 93010; J2060

== ENCOUNTER 2025-05-12 13:28 | Emergency (ER) | payer MEDICARE, SELFPAY ==
[2025-05-12] VITALS (33 sets, daily range): BP systolic 137–164; BP diastolic 67–101; PULSE 80–101; RESP 11–29; TEMP 36.6–36.9; O2SAT 97–99
--- NOTE | 2025-05-12 13:45 | DI.CT_ITS ---
Exam(s) CT HEAD WO EXAM: CT HEAD WO CLINICAL HISTORY: confusion. TECHNIQUE: Imaging Protocol: Axial computed tomography images with coronal and sagittal reformatted images were created and reviewed COMPARISON: CT CT HEAD - STROKE PROTOCOL from 08/12/2024 FINDINGS: Ventricles and Extra axial spaces: Normal in size and morphology for the patient's age. Hemorrhage: None. Cerebral parenchyma: There are areas of decreased attenuation in the white matter consistent with chronic microvascular ischemic disease. There is an area of encephalomalacia involving the right occipital lobe. No evidence of an acute territorial infarct is seen. No acute mass effect is present. Midline shift: None. Brainstem/Cerebellum: Normal. Calvarium: Normal. Visualized Paranasal sinuses/Mastoids: There is a small amount of fluid in the left sphenoid sinus. The remaining visualized paranasal sinuses are clear as are the mastoid air cells. Soft Tissues: Unremarkable. IMPRESSION: No acute intracranial process. RADIATION DOSE DELIVERED: 937.25mGy.cm Total DLP DATA REPOSITORY: All CT scans at this facility are submitted to the National Radiology Data Registry (NRDR) Dose Index Registry (DIR) with the [employer] ([employer]). RADIATION OPTIMIZATION: All CT scans at this facility use at least one of these dose optimization techniques: automated exposure control; mA and/or kV adjustment per patient size (includes targeted exams where dose is matched to clinical indication); or iterative reconstruction.
--- NOTE | 2025-05-12 13:45 | RT.EKG_ITS ---
APPROVED REPORT Exam: Resting ECG Reason for Exam: confusion Patient Location: E HR:86 bpm ECG Measurements Heart Rate 86 AXIS NM [id number] P [id number] QRSd 76 QRS 10 QT 370 T 40 QTc 443 Conclusion Atrial fibrillation...V-rate 71-115, irreg A-activity Low voltage, precordial leads...precordial leads <1.0mV I have reviewed and interpreted ECG and agree with software generated interpretation.
--- NOTE | 2025-05-12 13:48 | W.ED.GENAD ---
Discharge Plan Disposition Patient Disposition: Home Condition: Stable Discharge Details Clinical Impression: Acute UTI, Acute confusion Primary Care Provider: Lyla Segundo ED Provider: Bessy Duncan Home Meds and New Rx's Prescriptions: Continued insulin glargine [Lantus U-100 Insulin] 100 UNITS/ML solution 10 - 45 units SQ DIRECTED Patient Comments: 45 units QAM / 10 units QHS citalopram 20 MG tablet 2 tab PO DAILY Citracal-D3 Plus Magnesium 1 EACH tablet 1 tab PO DAILY levothyroxine [Levoxyl] 50 MCG tablet 75 mcg PO DAILY cholecalciferol (vitamin D3) [Vitamin D3] 2,000 UNIT tablet 2,000 unit PO DAILY buspirone 15 mg tablet 15 mg PO BID tolterodine 2 mg capsule,extended release 24hr 2 mg PO DAILY losartan 100 mg tablet 100 mg PO QHS metoprolol succinate 25 mg tablet extended release 24 hr 25 mg PO DAILY Discharge Instructions Instructions: Delirium (confusion), Urinary Tract Infection, Adult ED Additional Instructions: Labs were concerning for a urinary tract infection. She was given a dose of fosfomycin here which is a one-time antibiotic that should help to improve symptoms over the next 24 to 48 hours. Please continue to encourage hydration. Please follow-up with primary care within the next week for reevaluation. If she develops increased confusion, chest pain fevers or other new/worsening symptoms please seek care urgently once again. Referrals: Lyla Segundo [Primary Care Provider, Medicine] [facility] General Date/Time Provider Initiated Documentation: 05/12/25 13:46. Limitations to Documentation: altered mental status. Information obtained by: patient, family (daughter, granddaughter), EMS, RN notes reviewed and old records reviewed. History of Present Illness 84 year old F presents to the emergency department with the chief complaint of increased confusion, agitation, described as moderate and similar to prior episodes, Patient started experiencing this day(s) and it has been constant. No relieving factors improve symptom(s), No exacerbating factors reported (unclear source, has been attributed to UTI in the past) . Patient notes confusion, loss of appetite and rash (under breast); denies chest pain, cough, fever/chills, headaches, nausea/vomiting, shortness of breath and syncope. Patient did receive the following treatments prior to arrival, none Related Data Home Medications ?Medication ?Instructions ?Recorded ?Confirmed insulin glargine 100 unit/mL 10 - 45 units SQ DIRECTED 03/31/13 05/12/25 subcutaneous solution (Lantus U-100 Insulin) calcium 1 tab PO DAILY 10/30/13 05/12/25 [id number] 250 mg-40 mg-125 unit tablet (Citracal-D3 Plus Magnesium) citalopram 20 mg tablet 2 tab PO DAILY 10/30/13 05/12/25 cholecalciferol (vitamin D3) 50 2,000 unit PO DAILY 02/08/17 05/12/25 mcg (2,000 unit) tablet (Vitamin D3) levothyroxine 50 mcg tablet 75 mcg PO DAILY 02/08/17 05/12/25 (Levoxyl) buspirone 15 mg tablet 15 mg PO BID 05/12/25 05/12/25 losartan 100 mg tablet 100 mg PO QHS 05/12/25 05/12/25 metoprolol succinate 25 mg 25 mg PO DAILY 05/12/25 05/12/25 tablet,extended release 24 hr tolterodine 2 mg capsule,extended 2 mg PO DAILY 05/12/25 05/12/25 release 24 hr Allergies Allergy/AdvReac Type Severity Reaction Status Date / Time No Known Allergies Allergy Unverified 05/12/25 13:39 General Stated Complaint: AMS/LOC RUBIN: 3 Review of Systems Narrative: Unable to obtain d/t patient's mental status. While answering some questions, unclear on the accuracy. She is agitated and confused. Exam Const General: cooperative, well developed, in distress (tearful, confused), anxious and not combative Nutritional Appearance: average body habitus and well nourished Orientation: alert and awake [facility] Head: normal to inspection Mouth: moist mucous membranes Chest Breast palpation: other (raw under left breast, tender) Resp Effort & Inspection: normal respiratory effort, able to speak in complete sentences and no respiratory distress Auscultation: clear to auscultation bilaterally, no rales, no rhonchi and no wheezes Cardio Rate: regular rate Rhythm: regular rhythm Heart Sounds: S1 normal and S2 normal GI Inspection: normal to inspection Palpation: soft, no guarding, not rigid and nontender Back/Spine/Pelvis Back: no CVA tenderness Skin Trauma: no lacerations or abrasions Neuro General: patient alert, patient awake, tone normal, moves all extremities, no meningeal signs, no focal motor deficits, CN's II-XI intact bilaterally and patient confused Speech: speech normal Extrem General: normal to inspection, capillary refill normal, no clubbing, cyanosis or edema, no pedal edema, no calf tenderness and other (2+ distal pulses) Course Vital Signs Vital signs: Vital Signs Temperature 36.9 C 05/12/25 13:35 Pulse 85 05/12/25 13:35 Respiratory Rate 16 05/12/25 13:35 Blood Pressure 137/85 05/12/25 13:35 Pulse Oximetry 97 05/12/25 13:35 Temperature 36.6 C 05/12/25 13:38 Temperature Source Temporal Artery Scan 05/12/25 13:38 Pulse 84 05/12/25 13:38 Respiratory Rate 16 05/12/25 13:38 Respiratory Effort Normal 05/12/25 13:38 Respiratory Depth Normal 05/12/25 13:38 Respiratory Pattern Normal 05/12/25 13:38 Blood Pressure 137/85 05/12/25 13:38 Blood Pressure Position Supine 05/12/25 13:38 Pulse Oximetry 97 05/12/25 13:38 Oxygen Delivery Method Room Air 05/12/25 13:38 Oxygen Flow Rate 0 05/12/25 13:38 Pain Level 0 05/12/25 13:38 Medical Decision Making Patient is a pleasantly confused 84-year-old female who does have a history of dementia, presenting today with chief complaint of increased agitation and confusion at home. Per EMS, patient lives with her . She generally receives her care at outside [facility], [facility]. EMS does report that she was recently there for the same at which time she was diagnosed with a UTI, subsequently improved and was discharged. Unclear if this required inpatient stay or not. Patient is not able to give me this information. Per EMS, she has been declining over the past few days and has been declining p.o. intake although she is currently asking for ice water. She denies any pain at this point. Patient requesting water. On exam, patient appears agitated and anxious. She is tearful. She is hemodynamically stable. She is able to drink. No neurologic deficits. Moving all extremities well. Lungs are clear, normal cardiac exam. She has raw skin breakdown under her breast, no fungal appearance. Does not appear cellulitis. Barrier cream applied which helped with discofmort. Abdomen is benign. No CVA tenderness. While she is agitated, she is redirectable. Did not required medication to help her calm down, was able to redirect with simple comforts. Family at bedside. Daughter and granddaughter report that she has had increased confusion for hte past few days. Initially was more fatigued, sleeping large amount. However, once she was roused today, she became more agitated prompting family to send her in for evaluation. They report she has been hospitalized for UTI in the past. She had presented with similar agitation then. They also report that hse has been declining at home although her primary goal has been to stay at home with her . She has supportive family. She has DNR/DNI but the other levels of care are not as clear. Family is concerned that for the past few weeks/months, the patient has been discussing and wanting to see her daughter. Initial attempt at IV pulled out. Straight stick obtained. 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 Will obtain CT. More consered for UTI although no indication of sepsis at this time. Labs concerning for leukocytosis. Creatinine 2.4 which is baseline. UA concerning for UTI. Will discuss disposition with family. She does not appear acutely septic at this time, toerlated PO Tylenol. CT reviewed by radiologist, no acute abnormality. Chronic white matter disease noted. Discussed with patient and family. We had lengthy discussion regarding disposition. Goal is to be home, does not want assisted living or residential. We discussed inpatient vs. outpatient. As she is tolerating PO medications and fluids, as well as remaining hemodynamically stable without evidence of sepsis. Will treat with single dose of PO Fosfomycin for UTI. Encouraged supportive care and close f/u with PCP. Family interested in palliatve care, referral given. She has home health once per week, have asked care management to see if they are able to increase this frequency. Return precautions discussed. All of their questions and concerns were addressed, they are in agreement with this plan. PFSH All Active Problems (Updated 05/12/25 @ 17:22 by RONALDO Pearce) Acute confusion (Acute) Acute UTI (Acute) Sensorineural hearing loss (SNHL) of both ears (Acute) Social History Smoking/Tobacco Use Status: Never Smoking risk assessment performed?: Yes Alcohol Intake: former Drug use: Never Substance use type: does not use Do you feel safe at home: Yes Do you feel safe in your relationship?: Yes
[2025-05-12 14:04] LABS: Abs Immature Grans 0.06 10^3/uL (0.0-0.06); Absolute Basophil Count 0.05 10^3/uL (0.0-0.2); Absolute Lymphocyte Count 2.46 10^3/uL (1.2-3.4); Absolute Monocyte Count 1.28 10^3/uL (0.1-0.8); Basophils % 0.4 %; Eosinophils % 0.9 %; HCT 39.9 % (36.0-46.0); Immature Grans % 0.5 %; Lymphocytes % 19.1 %; MCHC 32.6 % (32.0-36.0); MCV 89 fL (80-95); MPV 11.2 fL (8.0-11.0); Monocytes % 9.9 %; Neutrophils % 69.2 %; Platelet Count 237 10^3/uL (130-400); RBC 4.49 10^6/uL (3.93-5.22); RDW 12.4 % (11.7-14.6); RDW-SD 40.6 fL
[2025-05-12 14:08] LABS: Absolute Eosinophil Count 0.12 10^3/uL (0.0-0.7); Absolute Neutrophil Count 8.93 10^3/uL (1.2-6.7)
--- NOTE | 2025-05-12 14:25 | DI.RAD_ITS ---
Exam(s) XR CHEST 2V PA LATERAL EXAM: XR CHEST 2V PA LATERAL CLINICAL HISTORY: confusion TECHNIQUE: 2D digital imaging was performed. Two views. COMPARISON: No exams were available for comparison FINDINGS: Exam is also limited by overlying monitoring leads and under penetration on the lateral view as well as arm positioning on the lateral view. HEART: Upper limits normal in size. Aorta: Not dilated. PULMONARY VASCULATURE: Normal. MEDIASTINUM: Unremarkable. LUNGS: Fibrotic changes, otherwise clear. PLEURAL SPACE: No pleural effusion or pneumothorax. BONE:Old right lower rib fracture. SOFT TISSUES: Unremarkable. IMPRESSION: No acute abnormality. DATA REPOSITORY: RADIATION DOSE DELIVERED:
[2025-05-12 15:24] LABS: ALT 23 U/L (14-59); AST 18 U/L (15-37); Albumin 3.4 g/dL (3.4-5.0); Alkaline Phosphatase 95 U/L (46-116); Anion Gap 9.2 mmol/L (3-11); BUN 31 mg/dL (7-18); Bilirubin, Total 0.8 mg/dL (0.2-1.0); CO2 26.8 mmol/L (21.0-32.0); CREATININE 2.4 mg/dL (0.55-1.02); Calcium 10.1 mg/dL (8.5-10.1); Chloride 104 mmol/L (98-107); Estimated GFR 19.19 (mL/min/1.73m2); Glucose 137 mg/dL (74-106); Magnesium 2.1 mg/dL (1.8-2.4); Sodium 140 mmol/L (136-145); Total Protein 6.9 g/dL (6.4-8.2); Troponin I 11 ng/L (<or=51)
[2025-05-12] MEDS: Acetaminophen 325 MG TAB 650 MG PO (15:45)
[2025-05-12 15:54] LABS: Bilirubin Negative (Negative); Blood Moderate (Negative); Clarity Cloudy (Clear); Glucose Negative (Negative); Ketones Trace mg/dL (Negative); Leukocyte Esterase Large (Negative); Nitrite Negative (Negative); Urobilinogen 0.2 mg/dL (Up to 0.2); pH 8.5 (5-8)
[2025-05-12 16:01] LABS: C & S Indicated? Yes; WBC >50 HPF (0-5)
[2025-05-12] MEDS: Fosfomycin Tromethamine 3 GM PACKET PO (17:01)
== END 2025-05-12 17:56 | disposition home or self-care (01) ==
PROVIDERS: Emergency Provider Physician Assistant; PCP Registered Nurse Infection Control
DX: N39.0 Urinary tract infection, site not specified (principal); F03.90 Unspecified dementia, unspecified severity, without behavioral disturbance, psychotic disturbance, mood disturbance, and anxiety; E11.9 Type 2 diabetes mellitus without complications; Z79.4 Long term (current) use of insulin
CPT/HCPCS: 36415; 80053; 82962; 87077; 93005; 99285; 70450; 71046; 81003; 81015; 83735; 84484; 85025; 87086; 87186; 93010; 99284; J3490

== ENCOUNTER 2025-10-20 09:53 | Outpatient (REF) | payer MEDICARE, SELFPAY ==
[2025-10-20 19:52] LABS: Glucose Negative (Negative)
[2025-10-20 20:03] LABS: RBC >50 HPF (0-2); WBC >50 HPF (0-5)
== END 2025-10-20 09:54 | disposition home or self-care (01) ==
LOC: NCHCN 09:53
PROVIDERS: PCP Registered Nurse Infection Control; Visit Provider Family Medicine
DX: R53.1 Weakness (principal)
CPT/HCPCS: 81003; 81015

== ENCOUNTER 2025-11-08 18:14 | Outpatient (REF) | payer MEDICARE, SELFPAY ==
[2025-11-08 19:51] LABS: Abs Immature Grans 0.03 10^3/uL (0.0-0.06); HCT 39.0 % (36.0-46.0); HGB 12.3 g/dL (11.2-15.7); Immature Grans % 0.3 %; MCH 28.3 pg (27.0-33.0); MCHC 31.5 % (32.0-36.0); MCV 90 fL (80-95); MPV 12.9 fL (8.0-11.0); Platelet Count 158 10^3/uL (130-400); RBC 4.34 10^6/uL (3.93-5.22); RDW 13.2 % (11.7-14.6); RDW-SD 43.8 fL; WBC 8.71 10^3/uL (4.4-10.8)
== END 2025-11-08 18:15 | disposition home or self-care (01) ==
LOC: NCHCN 18:14
PROVIDERS: PCP Registered Nurse Infection Control; Visit Provider Family Medicine
DX: D64.9 Anemia, unspecified (principal)
CPT/HCPCS: 85025